=== PATIENT | male | born 1995 | race Two or more races ===

== ENCOUNTER 2025-02-10 16:00 | Emergency (ER) | payer SELFPAY ==
[2025-02-10 16:05] VITALS: BP 169/102; PULSE 81; TEMP 37.1; O2SAT 99; BMI 23.0
--- NOTE | 2025-02-10 16:22 | ECG_ITS ---
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 Measurements Intervals Bim Rate: 77 P: 74 [place]: 130 QRS: 81 QRSD: 94 T: 56 QT: 358 QTc: 390 Interpretive Statements 1100 Sinus rhythm [address] elevation, probably early repolarization 9130 borderline ECG No previous ECG available for comparison Electronically Signed On 02-11-2025 17:45:20 EDT by DORIS DOE M.D.
--- NOTE | 2025-02-10 16:24 | ED.GENADUL1 ---
HPI HPI - General Adult General Chief complaint: Psychiatric Symptoms Stated complaint: HOPE LINE Time Seen by Provider: 02/10/25 16:03 Source: patient Mode of arrival: walk-in History of Present Illness HPI narrative: 30-year-old male presents to the emergency department with concerns of anger issues. He is worried that if he gets angry he might hurt somebody. He has not done anything to harm anybody or himself and he does not have any thoughts of hurting himself. He states that when he gets angry he always worries that he might hurt somebody. He has no physical complaints otherwise. He has not been on any psychiatric medications for about 2 years and does not see a counselor. He thinks he might test positive for marijuana but denies any other use of drugs or any alcohol. Related Data Home Medications ?Medication ?Instructions ?Recorded ?Confirmed No Known Home Medications 02/10/25 02/10/25 Allergies Allergy/AdvReac Type Severity Reaction Status Date / Time No Known Drug Allergies Allergy Verified 02/10/25 16:12 Opioid HPI Opioid Management Most Recent Opioid Data: Ur Phencyclidine Scrn, (NEGATIVE) Negative Today, 17:07 Review of Systems ROS Narrative A ten point review of systems is negative except as noted above. Exam Narrative Exam Narrative: Nurses note and vital signs reviewed and patient is not hypoxic. General: The patient appears well and in no apparent distress. Patient is resting comfortably on cart. Skin: Warm, dry, no pallor noted. There is no rash noted. Head: Normocephalic, atraumatic Eye: Normal conjunctiva, no drainage Ears, Nose, Mouth, and Throat: oral mucosa is moist. Nares patent. Cardiovascular: Regular Rate and Rhythm Respiratory: Patient is in no distress, no accessory muscle use, lungs are clear to auscultation, no wheezing, rales or rhonchi Back: non-tender GI: Soft and nontender Musculoskeletal: The patient has no evidence of calf tenderness, no pitting edema, symmetrical pulses noted bilaterally Neurological: A&O, normal speech Psychiatric: Cooperative, speaks softly Constitutional Vital Signs, click to edit/add: Last Vital Signs Temp 98.7 F 02/10/25 16:05 Pulse 81 02/10/25 17:17 Resp 16 02/10/25 17:17 BP 134/85 02/10/25 17:17 Pulse Ox 100 02/10/25 17:17 O2 Del Method Room Air 02/10/25 16:05 Course Vital Signs Vital signs: Vital Signs Temperature 98.7 F 02/10/25 16:05 Pulse Rate 81 02/10/25 16:05 Respiratory Rate 16 02/10/25 16:05 Blood Pressure 169/102 H 02/10/25 16:05 Pulse Oximetry 99 02/10/25 16:05 Oxygen Delivery Method Room Air 02/10/25 16:05 Temperature 98.7 F 02/10/25 16:05 Pulse Rate 81 02/10/25 17:17 Respiratory Rate 16 02/10/25 17:17 Blood Pressure 134/85 02/10/25 17:17 Pulse Oximetry 100 02/10/25 17:17 Oxygen Delivery Method Room Air 02/10/25 16:05 Medical Decision Making MDM Narrative Medical decision making narrative: The patient is medically cleared. Mental health services has been contacted and will be interviewing the patient tonight. The patient is signed out to Dr. Ernandez at change of shift. Lab Data Lab results reviewed: Yes I reviewed the patient's lab results Labs: Lab Results 02/10/25 02/10/25 Range/Units 16:30 17:07 WBC 5.6 (4.0-11.0) 10^3/uL RBC 5.03 (4.70-6.10) 10^6/uL Hgb 15.7 (14.0-18.0) g/dL Hct 45.0 (42.0-54.0) % MCV 89.5 (80.0-94.0) fL MCH 31.2 (25.9-34.0) pg MCHC 34.9 (29.9-35.2) g/dL RDW 13.0 (11.0-15.0) % Plt Count 202 (150-450) 10^3/uL MPV 10.5 (9.5-13.5) fL Neut % (Auto) 35.0 L (43.0-75.0) % Lymph % (Auto) 55.8 (20.5-60.0) % [place] % (Auto) 7.1 (1.7-12.0) % Eos % (Auto) 1.2 (0.9-7.0) % Baso % (Auto) 0.7 (0.2-2.0) % Neut # (Auto) 2.0 (1.4-6.5) 10^3/uL Lymph # (Auto) 3.1 (1.2-3.8) 10^3/uL [place] # (Auto) 0.4 (0.3-0.8) 10^3/uL Eos # (Auto) 0.1 (0.0-0.7) 10^3/uL Baso # (Auto) 0.0 (0.0-0.1) 10^3/uL Abs Immat Gran (auto) 0.01 (0.00-0.03) 10^3/uL Imm/Tot Granulo (auto) 0.2 (0.0-0.5) % Sodium 141 (136-145) mmol/L Potassium 4.0 (3.5-5.1) mmol/L Chloride 107 (98-107) mmol/L Carbon Dioxide 30.7 (21.0-32.0) mmol/L Anion Gap 7.3 BUN 12.0 (7.0-18.0) mg/dL Creatinine 1.29 (0.70-1.30) mg/dL Est GFR ( Amer) >60 (>=60 mL/min/1.73m^2) Est GFR (Non-Af Amer) >60 (>=60 mL/min/1.73m^2) BUN/Creatinine Ratio 9.3 Glucose 121 H (74-106) mg/dL Calcium 9.1 (8.5-10.1) mg/dL Urine Color Lt. yellow (YELLOW) Urine Clarity Clear (CLEAR) Urine pH 7.0 (5.0-9.0) Ur Specific [place] <=1.005 A (1.005-1.025) Urine Protein Negative (NEG/TRACE) mg/dL Urine Glucose (UA) Negative (NEGATIVE) mg/dL Urine Ketones Negative (NEGATIVE) mg/dL Urine Occult Blood Negative (NEGATIVE) Urine Nitrite Negative (NEGATIVE) Urine Bilirubin Negative (NEGATIVE) Urine Urobilinogen 0.2 (0.2-1.0) EU/dL Ur Leukocyte Esterase Negative (NEGATIVE) Urine RBC 0-2 (0-2) #/HPF Urine WBC None seen (NONE SEEN) #/HPF Ur Squamous Epith Cells Rare (NONE/RARE) #/LPF Urine Crystals None seen (None Seen) #/HPF Urine Bacteria None seen (NONE SEEN) #/HPF Urine Casts None seen (NONE SEEN) #/LPF Urine Mucus None seen (NONE SEEN) Salicylates <2.8 (<=19.9) mg/dL Urine Opiates Screen Negative (NEGATIVE) Ur Buprenorphine Scrn Negative (NEGATIVE) Ur Oxycodone Screen Negative (NEGATIVE) Urine Methadone Screen Negative (NEGATIVE) Acetaminophen <2.0 L (10.0-30.0) ug/mL Ur Barbiturates Screen Negative (NEGATIVE) U Tricyclic Antidepress Negative (NEGATIVE) Ur Phencyclidine Scrn Negative (NEGATIVE) Ur Amphetamines Screen Negative (NEGATIVE) U Methamphetamines Scrn Negative (NEGATIVE) U Benzodiazepines Scrn Negative (NEGATIVE) Urine Cocaine Screen Negative (NEGATIVE) U Cannabinoids Screen Positive A (NEGATIVE) Ethanol Quant <3 mg/dL ECG Data Attestation: I personally reviewed and interpreted this ECG as follows: (EKG on my interpretation shows sinus rhythm with a rate of 77.) Discharge Plan Discharge Patient Disposition: Still a Patient
[2025-02-10 16:41] LABS: Hematocrit 45.0 % (42.0-54.0); Hemoglobin 15.7 g/dL (14.0-18.0); Immature Granulocytes Abs Auto 0.01 10^3/uL (0.00-0.03); Immature Granulocytes Pct Auto 0.2 % (0.0-0.5); Lymphocytes Absolute Auto 3.1 10^3/uL (1.2-3.8); Mean Corpuscular HGB Conc 34.9 g/dL (29.9-35.2); Mean Corpuscular Hemoglobin 31.2 pg (25.9-34.0); Mean Corpuscular Volume 89.5 fL (80.0-94.0); Platelet Count 202 10^3/uL (150-450); Red Blood Count 5.03 10^6/uL (4.70-6.10); White Blood Count 5.6 10^3/uL (4.0-11.0)
[2025-02-10 16:53] LABS: Anion Gap 7.3; Blood Urea Nitrogen 12.0 mg/dL (7.0-18.0); Calcium 9.1 mg/dL (8.5-10.1); Carbon Dioxide 30.7 mmol/L (21.0-32.0); Chloride 107 mmol/L (98-107); Estimated GFR (African America >60 (>=60 mL/min/1.73m^2); Estimated GFR (Non-African Ame >60 (>=60 mL/min/1.73m^2); Glucose 121 mg/dL (74-106); Potassium 4.0 mmol/L (3.5-5.1); Sodium 141 mmol/L (136-145)
[2025-02-10 16:58] LABS: Salicylate <2.8 mg/dL (<=19.9)
[2025-02-10 17:02] LABS: Acetaminophen <2.0 ug/mL (10.0-30.0)
[2025-02-10 17:17] VITALS: BP 134/85; PULSE 81; O2SAT 100
[2025-02-10 17:28] LABS: Glucose Urine UA NEGATIVE (NEGATIVE)
[2025-02-10 17:32] LABS: Cannabinoid Screen Urine POSITIVE (NEGATIVE); Methamphetamines Screen Urine NEGATIVE (NEGATIVE); Tricyclic Antidepressant Urine NEGATIVE (NEGATIVE)
[2025-02-10 17:39] LABS: Cast Seen? NONE SEEN #/LPF (NONE SEEN); Crystals Seen? None Seen #/HPF (None Seen)
--- NOTE | 2025-02-10 19:54 | ED.PSYCH1 ---
HPI - Psych General Chief Complaint: Psychiatric Symptoms Stated Complaint: HOPE LINE Time Seen by Provider: 02/10/25 16:03 Source: Reports patient Mode of arrival: walk-in History of Present Illness HPI Narrative: This patient was signed out to me at shift change pending evaluation by [facility]. He was medically cleared in the emergency department. He was accepted for transfer to [facility] with a diagnosis of major depressive disorder. He has remained calm and cooperative in the emergency department. Related Data Home Medications ?Medication ?Instructions ?Recorded ?Confirmed No Known Home Medications 02/10/25 02/10/25 Allergies Allergy/AdvReac Type Severity Reaction Status Date / Time No Known Drug Allergies Allergy Verified 02/10/25 16:12 Exam Constitutional Vital Signs, click to edit/add: Last Vital Signs Temp 98.7 F 02/10/25 16:05 Pulse 81 02/10/25 17:17 Resp 16 02/10/25 17:17 BP 134/85 02/10/25 17:17 Pulse Ox 100 02/10/25 17:17 O2 Del Method Room Air 02/10/25 16:05 Course Vital Signs Vital signs: Vital Signs Temperature 98.7 F 02/10/25 16:05 Pulse Rate 81 02/10/25 16:05 Respiratory Rate 16 02/10/25 16:05 Blood Pressure 169/102 H 02/10/25 16:05 Pulse Oximetry 99 02/10/25 16:05 Oxygen Delivery Method Room Air 02/10/25 16:05 Temperature 98.7 F 02/10/25 16:05 Pulse Rate 81 02/10/25 17:17 Respiratory Rate 16 02/10/25 17:17 Blood Pressure 134/85 02/10/25 17:17 Pulse Oximetry 100 02/10/25 17:17 Oxygen Delivery Method Room Air 02/10/25 16:05 MDM - Psych Lab Data Labs: Lab Results 02/10/25 02/10/25 Range/Units 16:30 17:07 WBC 5.6 (4.0-11.0) 10^3/uL RBC 5.03 (4.70-6.10) 10^6/uL Hgb 15.7 (14.0-18.0) g/dL Hct 45.0 (42.0-54.0) % MCV 89.5 (80.0-94.0) fL MCH 31.2 (25.9-34.0) pg MCHC 34.9 (29.9-35.2) g/dL RDW 13.0 (11.0-15.0) % Plt Count 202 (150-450) 10^3/uL MPV 10.5 (9.5-13.5) fL Neut % (Auto) 35.0 L (43.0-75.0) % Lymph % (Auto) 55.8 (20.5-60.0) % [place] % (Auto) 7.1 (1.7-12.0) % Eos % (Auto) 1.2 (0.9-7.0) % Baso % (Auto) 0.7 (0.2-2.0) % Neut # (Auto) 2.0 (1.4-6.5) 10^3/uL Lymph # (Auto) 3.1 (1.2-3.8) 10^3/uL [place] # (Auto) 0.4 (0.3-0.8) 10^3/uL Eos # (Auto) 0.1 (0.0-0.7) 10^3/uL Baso # (Auto) 0.0 (0.0-0.1) 10^3/uL Abs Immat Gran (auto) 0.01 (0.00-0.03) 10^3/uL Imm/Tot Granulo (auto) 0.2 (0.0-0.5) % Sodium 141 (136-145) mmol/L Potassium 4.0 (3.5-5.1) mmol/L Chloride 107 (98-107) mmol/L Carbon Dioxide 30.7 (21.0-32.0) mmol/L Anion Gap 7.3 BUN 12.0 (7.0-18.0) mg/dL Creatinine 1.29 (0.70-1.30) mg/dL Est GFR ( Amer) >60 (>=60 mL/min/1.73m^2) Est GFR (Non-Af Amer) >60 (>=60 mL/min/1.73m^2) BUN/Creatinine Ratio 9.3 Glucose 121 H (74-106) mg/dL Calcium 9.1 (8.5-10.1) mg/dL Urine Color Lt. yellow (YELLOW) Urine Clarity Clear (CLEAR) Urine pH 7.0 (5.0-9.0) Ur Specific [place] <=1.005 A (1.005-1.025) Urine Protein Negative (NEG/TRACE) mg/dL Urine Glucose (UA) Negative (NEGATIVE) mg/dL Urine Ketones Negative (NEGATIVE) mg/dL Urine Occult Blood Negative (NEGATIVE) Urine Nitrite Negative (NEGATIVE) Urine Bilirubin Negative (NEGATIVE) Urine Urobilinogen 0.2 (0.2-1.0) EU/dL Ur Leukocyte Esterase Negative (NEGATIVE) Urine RBC 0-2 (0-2) #/HPF Urine WBC None seen (NONE SEEN) #/HPF Ur Squamous Epith Cells Rare (NONE/RARE) #/LPF Urine Crystals None seen (None Seen) #/HPF Urine Bacteria None seen (NONE SEEN) #/HPF Urine Casts None seen (NONE SEEN) #/LPF Urine Mucus None seen (NONE SEEN) Salicylates <2.8 (<=19.9) mg/dL Urine Opiates Screen Negative (NEGATIVE) Ur Buprenorphine Scrn Negative (NEGATIVE) Ur Oxycodone Screen Negative (NEGATIVE) Urine Methadone Screen Negative (NEGATIVE) Acetaminophen <2.0 L (10.0-30.0) ug/mL Ur Barbiturates Screen Negative (NEGATIVE) U Tricyclic Antidepress Negative (NEGATIVE) Ur Phencyclidine Scrn Negative (NEGATIVE) Ur Amphetamines Screen Negative (NEGATIVE) U Methamphetamines Scrn Negative (NEGATIVE) U Benzodiazepines Scrn Negative (NEGATIVE) Urine Cocaine Screen Negative (NEGATIVE) U Cannabinoids Screen Positive A (NEGATIVE) Ethanol Quant <3 mg/dL Discharge Plan Discharge Chief Complaint: Psychiatric Symptoms Clinical Impression: Unable to control anger, Major depressive disorder Patient Disposition: [facility] Time of Disposition Decision: 19:54 Discharge Location: [facility] Mode of Transportation: Mental Health Car
[2025-02-11 01:42] VITALS: BP 132/89; PULSE 53; TEMP 36.9; O2SAT 100
== END 2025-02-11 01:10 | disposition short-term general hospital (02) ==
PROVIDERS: Emergency Medicine; Emergency Provider Emergency Medicine
DX: F32.9 Major depressive disorder, single episode, unspecified (principal)
CPT/HCPCS: 36415; 80048; 80179; 80307; 80320; 80329; 81001; 85025; 93005; 99285